=== PATIENT | female | born 1940 | race Caucasian/White ===

== ENCOUNTER 2017-09-30 08:09 | Emergency (ER) | payer MEDICARE, BC ==
[2017-09-30 09:19] LABS: AUTOMATED NEUTROPHIL # 6.2 TH/MM3 (1.8-7.7); BASOPHIL # 0.1 TH/MM3 (0-0.2); BASOPHIL % 0.7 % (0.0-2.0); EOSINOPHIL # 0.1 TH/MM3 (0-0.4); EOSINOPHIL % 0.8 % (0.0-4.0); HEMATOCRIT 45.2 % (35.0-46.0); HEMO FLAGS DIFF FINAL; HEMOGLOBIN 15.9 GM/DL (11.6-15.3); LYMPH % 15.8 % (9.0-44.0); LYMPHOCYTE # 1.4 TH/MM3 (1.0-4.8); MEAN CELL VOLUME 94.3 FL (80.0-100.0); MEAN CORPUSCULAR HEMOGLOBIN 33.3 PG (27.0-34.0); MEAN CORPUSCULAR HGB CONC 35.3 % (32.0-36.0); MEAN PLATELET VOLUME 8.8 FL (7.0-11.0); MONO % 9.7 % (0.0-8.0); MONOCYTE # 0.8 TH/MM3 (0-0.9); PLATELET COUNT 294 TH/MM3 (150-450); WHITE BLOOD COUNT 8.6 TH/MM3 (4.0-11.0)
[2017-09-30 09:55] LABS: CALCIUM 9.4 MG/DL (8.5-10.1)
[2017-09-30 09:56] LABS: GLUCOSE,RANDOM 109 MG/DL (74-106)
[2017-09-30 10:00] LABS: CREATININE 0.74 MG/DL (0.50-1.00); GLOMERULAR FILTRATION RATE 76 ML/MIN (>89)
[2017-09-30 10:02] LABS: ANION GAP 7 MEQ/L (5-15); CHLORIDE 107 MEQ/L (98-107); POTASSIUM 3.6 MEQ/L (3.5-5.1); SODIUM (NA) 141 MEQ/L (136-145)
[2017-09-30 10:04] LABS: BLOOD UREA NITROGEN 13 MG/DL (7-18)
[2017-09-30 10:39] LABS: WESTERGREN SEDIMENTATION RATE 4 mm/hr (0-30)
== END 2017-09-30 11:30 | disposition home or self-care (01) ==
LOC: PHED 08:09
DX: G44.309 Post-traumatic headache, unspecified, not intractable (principal); I10 Essential (primary) hypertension; Z79.899 Other long term (current) drug therapy
CPT/HCPCS: 70450; 80048; 85025; 85652; 99284

== ENCOUNTER 2018-03-28 14:57 | Observation (INO) ==
--- NOTE | 2018-03-28 15:14 | ED ---
HPI General Chief Complaint: Shortness of Breath/Dyspnea Stated Complaint: Cardiac Issue Time Seen by Provider: 03/28/18 15:01 Source: patient, EMS and RN notes reviewed Mode of arrival: EMS Limitations: no limitations History of Present Illness HPI narrative: 77 y/o female presents by ems with episode of heart rate in the 200s and feeling short of breath with chest pressure. She states she took her 's digoxin to see if it would help which is 0.25 mg. She states she had already taken her Cardizem which she has been on since she was in her 20s when she had an episode of tachycardia. She states she has not had any issues since then. She states now that her heart rate is controlled she has no symptoms. MD complaint: Reports rapid heart beat Onset (ago): minute(s) Duration: now resolved Context: Reports occurred during rest Associated symptoms: Reports chest pain and shortness of breath Related Data Home Medications Medication Instructions Recorded Confirmed clopidogrel [Plavix] 75 mg PO DAILY 03/28/18 03/28/18 conjugated estrogens [Premarin] 0.3 mg PO EVERY OTHER DAY 03/28/18 03/28/18 diltiazem HCl [Cardizem CD] 180 mg PO DAILY 03/28/18 03/28/18 lisinopril 10 mg PO DAILY 03/28/18 03/28/18 rosuvastatin [Crestor] 5 mg PO HS 03/28/18 03/28/18 Allergies Allergy/AdvReac Type Severity Reaction Status Date / Time No Known Allergies Allergy Unverified 09/30/17 08:19 Review of Systems ROS: all other systems reviewed are negative PMFSH History History Provided By: Patient (Tachycardia since she was 21) Medical History Medical History Accelerated essential hypertension (Acute) H/O: hysterectomy (Acute) Irregular heart beat (Acute) Tachycardia (Acute) Surgical History Surgical History History of appendectomy (Acute) Social History Social History Substance History: No History of Abuse Smoking Status: Former smoker Tobacco Type: Cigarettes How Often Do You Have a Drink Containing Alcohol: Monthly or less Recent Travel in [facility] within the Last 8 Weeks: No Exam Narrative Exam Narrative: GENERAL: 77 y/o female in no apparent distress SKIN: Focused skin assessment warm/dry. HEAD: Atraumatic. Normocephalic. EYES: Pupils equal and round. No scleral icterus. No injection or drainage. ENT: No nasal bleeding or discharge. Mucous membranes pink and moist. NECK: Trachea midline. No JVD. CARDIOVASCULAR: Regular rate and rhythm. No murmur appreciated. RESPIRATORY: No accessory muscle use. Clear to auscultation. Breath sounds equal bilaterally MUSCULOSKELETAL: No obvious deformities. No clubbing. No cyanosis. No edema. NEUROLOGICAL: Awake and alert. No obvious cranial nerve deficits. Motor grossly within normal limits. Normal speech. PSYCHIATRIC: Appropriate mood and affect; insight and judgment normal. Course Reevaluation(s) Reevaluation #1: Advised patient I recommend for her to stay in the hospital overnight. She states that she really wants to go home but does not want to sign out AMA. She is going to follow with Dr. Kang at our this Thursday for the first time. Will discuss with her sound engineer Reevaluation #2: Lengthy discussion with patient and originally she was not wanting to stay even for repeat troponin but now she is willing to stay for this repeat test and if it is normal agrees to discharge with follow-up in the office. She understands this is not a complete cardiac workup. Reevaluation #3: Repeat troponin is 0.08. Will discuss with sound engineer Additional Reevaluation(s): Patient updated and agrees to admission Consultations Consultation #1: dr hightower states can go home and follow in office if repeat troponin is normal as patient wanting to go home Consultation #2: dr hightower agrees to admit, states to give baby aspirin and therapeutic Lovenox and can stay at [facility] Consultation #3: dr sanchez agrees to admit Initial Documented Vital Signs Temperature 97.7 F 03/28/18 15:01 Pulse Rate 105 H 03/28/18 15:01 Respiratory Rate 18 03/28/18 15:01 Blood Pressure 167/71 H 03/28/18 15:01 Pulse Oximetry 95 03/28/18 15:01 Last Documented Vital Signs Temperature 97.7 F 03/28/18 15:01 Pulse Rate 92 H 03/28/18 18:15 Respiratory Rate 18 03/28/18 18:15 Blood Pressure 128/68 03/28/18 18:15 Pulse Oximetry 98 03/28/18 18:15 Medical Decision Making MDM Narrative Medical decision making narrative: will check labs, cxr and reevaluate Medical Screen Exam Complete: Yes Emergency Medical Condition: Yes Differential Diagnosis Differential Diagnosis: svt, afib with rvr, aflutter, electrolyte abnormality Lab Data Lab results reviewed: Yes I reviewed the patient's lab results. Result diagrams: 03/28/18 15:10 03/28/18 15:10 Lab Results 03/28/18 03/28/18 03/28/18 Range/Units 15:02 15:10 15:10 CBC w Diff Auto diff final WBC 7.0 (4.0-11.0) th/mm3 RBC 4.65 (4.00-5.30) mil/mm3 Hgb 15.4 H (11.6-15.3) gm/dL Hct 44.7 (35.0-46.0) % MCV 96.1 (80.0-100.0) fL MCH 33.1 (27.0-34.0) pg MCHC 34.4 (32.0-36.0) % RDW 11.5 L (11.6-17.2) % Plt Count 282 (150-450) th/mm3 MPV 8.7 (7.0-11.0) fL Neut % (Auto) 56.0 (16.0-70.0) % Lymph % (Auto) 27.0 (9.0-44.0) % [place] % (Auto) 14.0 H (0.0-8.0) % Eos % (Auto) 1.7 (0.0-4.0) % Baso % (Auto) 1.3 (0.0-2.0) % Neut # (Auto) 3.9 (1.8-7.7) th/mm3 Lymph # (Auto) 1.9 (1.0-4.8) th/mm3 [place] # (Auto) 1.0 H (0.0-0.9) th/mm3 Eos # (Auto) 0.1 (0.0-0.4) th/mm3 Baso # (Auto) 0.1 (0.0-0.2) th/mm3 WBC Differential . Differential Comment . PT (9.8-11.6) sec INR Ratio APTT (23.4-31.7) sec D-Dimer Quant (PE/DVT) 0.62 H (0.00-0.50) mg/L FEU Sodium (136-145) meq/L Potassium (3.5-5.1) meq/L Chloride (98-107) meq/L Carbon Dioxide (21.0-32.0) meq/L Anion Gap (5-15) meq/L BUN (7-18) mg/dL Creatinine (0.50-1.00) mg/dL Estimated GFR (>89) mL/min POC Glucose 114 H (68-110) mg/dl Random Glucose (74-106) mg/dL Calcium (8.5-10.1) mg/dL Magnesium (1.5-2.5) mg/dL Total Bilirubin (0.2-1.0) mg/dL AST (15-37) U/L ALT (10-53) U/L Alkaline Phosphatase (45-117) U/L Total Creatine Kinase (26-192) U/L Troponin I (0.02-0.05) ng/mL B-Natriuretic Peptide (0-100) pg/mL Total Protein (6.4-8.2) g/dL Albumin (3.4-5.0) g/dL Digoxin (0.8-2.0) ng/mL 03/28/18 03/28/18 03/28/18 Range/Units 15:10 15:10 15:10 CBC w Diff WBC (4.0-11.0) th/mm3 RBC (4.00-5.30) mil/mm3 Hgb (11.6-15.3) gm/dL Hct (35.0-46.0) % MCV (80.0-100.0) fL MCH (27.0-34.0) pg MCHC (32.0-36.0) % RDW (11.6-17.2) % Plt Count (150-450) th/mm3 MPV (7.0-11.0) fL Neut % (Auto) (16.0-70.0) % Lymph % (Auto) (9.0-44.0) % [place] % (Auto) (0.0-8.0) % Eos % (Auto) (0.0-4.0) % Baso % (Auto) (0.0-2.0) % Neut # (Auto) (1.8-7.7) th/mm3 Lymph # (Auto) (1.0-4.8) th/mm3 [place] # (Auto) (0.0-0.9) th/mm3 Eos # (Auto) (0.0-0.4) th/mm3 Baso # (Auto) (0.0-0.2) th/mm3 WBC Differential Differential Comment PT 9.4 L (9.8-11.6) sec INR 0.9 Ratio APTT 31.0 (23.4-31.7) sec D-Dimer Quant (PE/DVT) (0.00-0.50) mg/L FEU Sodium 138 (136-145) meq/L Potassium 4.7 (3.5-5.1) meq/L Chloride 107 (98-107) meq/L Carbon Dioxide 21.6 (21.0-32.0) meq/L Anion Gap 9 (5-15) meq/L BUN 13 (7-18) mg/dL Creatinine 0.79 (0.50-1.00) mg/dL Estimated GFR 71 L (>89) mL/min POC Glucose (68-110) mg/dl Random Glucose 115 H (74-106) mg/dL Calcium 9.1 (8.5-10.1) mg/dL Magnesium (1.5-2.5) mg/dL Total Bilirubin 0.5 (0.2-1.0) mg/dL AST 70 H (15-37) U/L ALT 68 H (10-53) U/L Alkaline Phosphatase 65 (45-117) U/L Total Creatine Kinase (26-192) U/L Troponin I Less than 0.02 L (0.02-0.05) ng/mL B-Natriuretic Peptide 53 (0-100) pg/mL Total Protein 7.6 (6.4-8.2) g/dL Albumin 3.9 (3.4-5.0) g/dL Digoxin 0.8 (0.8-2.0) ng/mL 03/28/18 03/28/18 Range/Units 15:10 18:00 CBC w Diff WBC (4.0-11.0) th/mm3 RBC (4.00-5.30) mil/mm3 Hgb (11.6-15.3) gm/dL Hct (35.0-46.0) % MCV (80.0-100.0) fL MCH (27.0-34.0) pg MCHC (32.0-36.0) % RDW (11.6-17.2) % Plt Count (150-450) th/mm3 MPV (7.0-11.0) fL Neut % (Auto) (16.0-70.0) % Lymph % (Auto) (9.0-44.0) % [place] % (Auto) (0.0-8.0) % Eos % (Auto) (0.0-4.0) % Baso % (Auto) (0.0-2.0) % Neut # (Auto) (1.8-7.7) th/mm3 Lymph # (Auto) (1.0-4.8) th/mm3 [place] # (Auto) (0.0-0.9) th/mm3 Eos # (Auto) (0.0-0.4) th/mm3 Baso # (Auto) (0.0-0.2) th/mm3 WBC Differential Differential Comment PT (9.8-11.6) sec INR Ratio APTT (23.4-31.7) sec D-Dimer Quant (PE/DVT) (0.00-0.50) mg/L FEU Sodium (136-145) meq/L Potassium (3.5-5.1) meq/L Chloride (98-107) meq/L Carbon Dioxide (21.0-32.0) meq/L Anion Gap (5-15) meq/L BUN (7-18) mg/dL Creatinine (0.50-1.00) mg/dL Estimated GFR (>89) mL/min POC Glucose (68-110) mg/dl Random Glucose (74-106) mg/dL Calcium (8.5-10.1) mg/dL Magnesium 2.3 (1.5-2.5) mg/dL Total Bilirubin (0.2-1.0) mg/dL AST (15-37) U/L ALT (10-53) U/L Alkaline Phosphatase (45-117) U/L Total Creatine Kinase 95 (26-192) U/L Troponin I 0.08 H (0.02-0.05) ng/mL B-Natriuretic Peptide (0-100) pg/mL Total Protein (6.4-8.2) g/dL Albumin (3.4-5.0) g/dL Digoxin (0.8-2.0) ng/mL Imaging Data Attestation: I personally reviewed and interpreted this imaging study as follows : Radiologist's impression: Chest X-Ray 03/28/18 15:06 CONCLUSION: No evidence of acute cardiac pulmonary process. Chest CTA 03/28/18 15:50 CONCLUSION: 1. No pulmonary embolus or other acute cardiopulmonary disease. 2. Mild to moderate emphysema. 3. Coronary artery calcification. Discharge Plan Discharge Disposition Patient Disposition: 30 Still Patient Discharge Details Diagnosis: Tachycardia, Shortness of breath Physicians Team ED Provider: Bethany Cutler Primary Care Provider: Leroy Padilla Attending Provider: Mega Sanchez Status ED Status: Admitted Observation Patient
[2018-03-28 15:26] LABS: Baso # (Auto) 0.1 th/mm3 (0.0-0.2); Baso % (Auto) 1.3 % (0.0-2.0); Eos # (Auto) 0.1 th/mm3 (0.0-0.4); Eos % (Auto) 1.7 % (0.0-4.0); Hematocrit 44.7 % (35.0-46.0); Hemoglobin 15.4 gm/dL (11.6-15.3); Lymph # (Auto) 1.9 th/mm3 (1.0-4.8); Mean Corpuscular HGB Conc 34.4 % (32.0-36.0); Mean Corpuscular Hemoglobin 33.1 pg (27.0-34.0); Mean Corpuscular Volume 96.1 fL (80.0-100.0); Mean Platelet Volume 8.7 fL (7.0-11.0); Neut # (Auto) 3.9 th/mm3 (1.8-7.7); Platelet Count 282 th/mm3 (150-450); Red Blood Count 4.65 mil/mm3 (4.00-5.30); Red Cell Distribution Width 11.5 % (11.6-17.2)
[2018-03-28 15:37] LABS: Chloride 107 meq/L (98-107); Sodium 138 meq/L (136-145)
[2018-03-28 15:39] LABS: Magnesium 2.3 mg/dL (1.5-2.5)
[2018-03-28 15:40] LABS: Calcium 9.1 mg/dL (8.5-10.1)
[2018-03-28 15:41] LABS: Albumin 3.9 g/dL (3.4-5.0); Anion Gap 9 meq/L (5-15); Blood Urea Nitrogen 13 mg/dL (7-18); Carbon Dioxide 21.6 meq/L (21.0-32.0); Glucose,Random 115 mg/dL (74-106)
[2018-03-28 15:42] LABS: Potassium 4.7 meq/L (3.5-5.1)
[2018-03-28 15:44] LABS: Alanine Aminotransferase 68 U/L (10-53); Aspartate Aminotransferase 70 U/L (15-37); Glomerular Filtration Rate 71 mL/min (>89); INR 0.9 Ratio; Prothrombin Time 9.4 sec (9.8-11.6)
[2018-03-28 15:46] LABS: Alkaline Phosphatase 65 U/L (45-117); Total Protein 7.6 g/dL (6.4-8.2)
--- NOTE | 2018-03-28 15:49 | XR ---
EXAM DATE: 03/28/2018 3:44 PM EST AGE/SEX: 77 years / Female INDICATIONS: Rapid heart rate, short of breath CLINICAL DATA: This is the patient's initial encounter. Patient reports that signs and symptoms have been present for 1 day and indicates a pain score of 0/10. MEDICAL/SURGICAL HISTORY: None. None. COMPARISON: No prior exams available for comparison. FINDINGS: A single AP view of the chest demonstrates the lungs to be symmetrically aerated without evidence of mass, infiltrate or effusion. The cardiomediastinal contours are unremarkable. Osseous structures a re intact. CONCLUSION: No evidence of acute cardiac pulmonary process. Electronically signed by: Wilton Baum MD 03/28/2018 3:47 PM EST
[2018-03-28 16:22] LABS: Digoxin 0.8 ng/mL (0.8-2.0)
--- NOTE | 2018-03-28 17:08 | CT ---
EXAM DATE: 03/28/2018 4:57 PM EST AGE/SEX: 77 years / Female INDICATIONS: Chest pressure and tachycardia. CLINICAL DATA: This is the patient's initial encounter. Patient reports that signs and symptoms have been present for 1 day and indicates a pain score of 0/10. MEDICAL/SURGICAL HISTORY: None. None. RADIATION DOSE: 8.42 CTDI (mGy) COMPARISON: [facility], CHEST 1V SINGLE AP, 03/28/2018. . TECHNIQUE: Volumetric scanning was performed using a multi-row detector CT scanner during bolus infu joselyn of 65 ml Omnipaque 350 (iohexol) nonionic water-soluble contrast as a single exam dose. The cisco a was post processed with a variety of visualization algorithms including full volume maximum intensi ty projection and sliding thin slab reformation. Using automated exposure control and adjustment of the mA and/or kV according to patient size, radiation dose was kept as low as reasonably achievable t o obtain optimal diagnostic quality images. DICOM format image data is available electronically for review and comparison. FINDINGS: There is no pulmonary embolus. Heart size within normal limits. There is coronary artery calcificatio n. Thoracic aorta is tortuous and atherosclerotic. No aneurysm. Mild to moderate emphysema. No pneumonia. No pleural effusion or pneumothorax. There is no pathologic-appearing mediastinal, hilar or axillary lymphadenopathy. 1.5 cm hepatic cyst. CONCLUSION: 1. No pulmonary embolus or other acute cardiopulmonary disease. 2. Mild to moderate emphysema. 3. Coronary artery calcification. Electronically signed by: Linwood Kapadia MD 03/28/2018 5:06 PM EST
[2018-03-28] MEDS ORDERED: Enoxaparin Inj 60 MG/0.6 ML Syringe SQ ONE (18:39)
[2018-03-28] MEDS ORDERED: Acetaminophen 325 MG Tablet PO PRN (21:00)
[2018-03-28] MEDS ORDERED: Senna/Docusate Sodium 8.6/50 MG Tablet PO SCH (21:00)
[2018-03-28] MEDS ORDERED: Sodium Chloride 0.45 % Inj 1,000 ML IV.CONT SCH (21:00)
[2018-03-28] MEDS ORDERED: Bisacodyl 10 MG Supp RECTAL PRN (21:00)
[2018-03-28] MEDS ORDERED: Melatonin 5 MG Tablet PO PRN (23:16)
[2018-03-28 23:23] LABS: Troponin I 0.1 ng/mL (0.02-0.05)
[2018-03-28 23:32] LABS: Amphetamine Screen,Urine Neg (Neg); Barbiturate Screen,Urine Neg (Neg)
[2018-03-28 23:33] LABS: Cannabinoid Screen,Urine Neg (Neg); Cocaine Screen,Urine Neg (Neg)
[2018-03-28 23:53] LABS: Opiate Screen,Urine Neg (Neg)
[2018-03-29 04:58] LABS: Alanine Aminotransferase 47 U/L (10-53); Albumin 3.4 g/dL (3.4-5.0); Alkaline Phosphatase 52 U/L (45-117); Anion Gap 8 meq/L (5-15); Aspartate Aminotransferase 30 U/L (15-37); Blood Urea Nitrogen 11 mg/dL (7-18); Calcium 8.1 mg/dL (8.5-10.1); Carbon Dioxide 24.8 meq/L (21.0-32.0); Chloride 105 meq/L (98-107); Glomerular Filtration Rate 79 mL/min (>89); Glucose,Random 85 mg/dL (74-106); Potassium 3.6 meq/L (3.5-5.1); Sodium 138 meq/L (136-145); Total Protein 6.2 g/dL (6.4-8.2)
[2018-03-29] MEDS ORDERED: Enoxaparin Inj 60 MG/0.6 ML Syringe SQ SCH (08:00)
[2018-03-29 08:04] VITALS: O2SAT 98
[2018-03-29 08:06] VITALS: TEMP 98.5
[2018-03-29] MEDS ORDERED: Lisinopril 10 MG Tablet PO SCH (09:00)
[2018-03-29] MEDS ORDERED: dilTIAZem CD 180 MG Capsule PO SCH (09:00)
--- NOTE | 2018-03-29 09:05 | P.CONCA ---
History of Present Illness Service: Cardiology Reason for Consult: Palpitations Primary Care Provider: Leroy Padilla MD Chief Complaint: Palpitations History of Present Illness: Pleasant 77-year-old female who was scheduled for a new patient appointment in our office on March 31 who reports that she was sitting watching TV yesterday when all of a sudden her heart rate jumped up into the 200s associated with shortness of breath. Patient states that she took her 's digoxin to see if it would help slow her heart rate down. Upon arrival to the hospital her heart rate had returned to normal and her symptoms had resolved. She is on Cardizem daily which she has been on since she was 30 years old for an episode of tachycardia. She had elevated d-dimer followed by CTA that ruled out PE. Troponin mildly elevated at 0.10. Patient denies any chest pain or shortness of breath at this time. Reports she walks regularly for exercise, with no difficulty. Patient had a recent MR brain with and without contrast, that showed scattered old tiny lacunar infarcts within the bilateral basal ganglia and the left cerebellar hemisphere. Records reviewed from patient's prior manager policy report a remote history of atrial fibrillation. Long discussion had with patient and her in reference to anticoagulation with Eliquis or Coumadin. We will plan to start the patient on metoprolol and Eliquis 5 mg twice daily. Patient request to be discharged with follow-up testing outpatient. Review of Systems All other systems reviewed negative except as stated in [facility] - History History Provided By: Patient - Medical History Medical History: Medical History (Last Reviewed 03/29/18 @ 10:25 by Mega Sanchez MD) Accelerated essential hypertension H/O: hysterectomy Irregular heart beat Tachycardia - Surgical History Surgical History: Surgical History (Last Reviewed 03/29/18 @ 10:25 by Mega Sanchez MD) History of appendectomy - Social History I have reviewed the patient's Social History: Yes - Tobacco History Second Hand Smoke Exposure: No Tobacco Use In Past 30 Days: No Smoking Status: Former smoker Tobacco Type: Cigarettes - Alcohol History How Often Do You Have a Drink Containing Alcohol: Monthly or less - Substance Use History Substance History: No History of Abuse - Travel History Recent Travel in the [facility] Within the Last 8 Weeks: No - Immunization History Tetanus Immunization: Unsure Medications and Allergies Allergies Allergy/AdvReac Type Severity Reaction Status Date / Time No Known Allergies Allergy Unverified 09/30/17 08:19 Home Medications Medication Instructions Recorded Confirmed Type clopidogrel [Plavix] 75 mg PO DAILY 03/28/18 03/28/18 History conjugated estrogens [Premarin] 0.3 mg PO EVERY OTHER DAY 03/28/18 03/28/18 History diltiazem HCl [Cardizem CD] 180 mg PO DAILY 03/28/18 03/28/18 History lisinopril 10 mg PO DAILY 03/28/18 03/28/18 History rosuvastatin [Crestor] 5 mg PO HS 03/28/18 03/28/18 History Active Medications: Active Medications Acetaminophen (Tylenol) 650 mg PO Q4H PRN PRN Reason: Temp > 100.4 Aspirin (Ecotrin) 81 mg PO DAILY [facility] Bisacodyl (Dulcolax Supp) 10 mg RECTAL DAILY PRN PRN Reason: SEVERE CONSITIPATION Diltiazem HCl (Cardizem Cd 24hr) 180 mg PO DAILY [facility] Enoxaparin Sodium (Lovenox Inj) 60 mg SQ Q12HR [facility] Sodium Chloride (1/2 Normal Saline Inj) 1,000 mls @ 65 mls/hr IV.CONT .[id number] [facility] Stop: 03/29/18 12:23 Last Admin: 03/28/18 22:40 Dose: 65 mls/hr Lactulose (Lactulose Liq) 30 ml PO DAILY PRN PRN Reason: SEVERE CONSITIPATION Lisinopril (Prinivil) 10 mg PO DAILY [facility] Melatonin (Melatonin) 10 mg PO HS PRN PRN Reason: INSOMNIA Last Admin: 03/28/18 23:25 Dose: 10 mg Ondansetron HCl (Zofran Inj) 4 mg IV.PUSH Q6H PRN PRN Reason: NAUSEA OR VOMITING Senna/Docusate Sodium (Blanche-Colace) 1 tab PO BID [facility] Last Admin: 03/28/18 22:33 Dose: Not Given Sennosides (Senokot) 17.2 mg PO Q12H PRN PRN Reason: Moderate Constipation Sodium Chloride (Ns Flush) 2 ml IV.FLUSH BID [facility] Last Admin: 03/28/18 22:41 Dose: 2 ml Sodium Chloride (Ns Flush) 2 ml IV.FLUSH PRN PRN PRN Reason: FLUSH AFTER USING IV ACCESS Exam Vital signs: Vital Signs 03/28/18 15:01 03/28/18 15:06 03/28/18 16:00 Temperature 97.7 F Pulse Rate 105 H 108 H 110 H Respiratory Rate 18 16 Blood Pressure 167/71 H 144/70 H Pulse Oximetry 95 95 03/28/18 16:38 03/28/18 17:01 03/28/18 17:18 Temperature Pulse Rate 102 H 110 H Respiratory Rate 18 18 Blood Pressure 145/64 H 136/67 Pulse Oximetry 96 95 95 03/28/18 18:15 03/28/18 19:28 03/28/18 20:21 Temperature Pulse Rate 92 H 92 H 74 Respiratory Rate 18 18 Blood Pressure 128/68 136/74 134/77 Pulse Oximetry 98 95 97 03/28/18 21:55 03/28/18 22:28 03/28/18 22:56 Temperature 97.7 F 97.7 F Pulse Rate 80 80 Respiratory Rate 24 16 Blood Pressure 141/68 H 141/68 H Pulse Oximetry 95 95 95 03/29/18 00:00 03/29/18 02:45 03/29/18 04:00 Temperature 97.5 F L 97.8 F Pulse Rate 80 76 62 Respiratory Rate 19 20 15 Blood Pressure 133/54 L 140/57 L Pulse Oximetry 92 L 03/29/18 07:00 03/29/18 08:00 Temperature 98.5 F Pulse Rate 72 70 Respiratory Rate 18 20 Blood Pressure Pulse Oximetry 98 Intake & Output 03/28/18 03/29/18 03/29/18 18:59 06:59 18:59 Intake Total 200 / 200 Output Total 175 / 175 300 / 300 Balance 25 / 25 -300 / -300 Weight 64 kg 63 kg Intake: Oral 200 / 200 Output: Urine 175 / 175 300 / 300 Other: # Voids 1 2 Weight On Admission 63 kg - Constitutional no acute distress, thin - Routine HEENT Exam Head: Present: normocephalic Eye: Present: EOMI, PERRL, normal accommodation ENT: Present: mucous membranes moist - Routine Neck Exam Present: supple - Routine Respiratory Exam Present: CTA bilaterally - Routine Cardiovascular Exam Present: RRR, tachycardia - Routine Skin Exam Present: intact - Routine Neurological Exam Present: alert, oriented X3 Results 03/28/18 15:10 03/29/18 04:25 Cardiac Enzymes 03/28/18 03/28/18 03/28/18 Range/Units 15:10 15:10 18:00 AST 70 H (15-37) U/L Troponin I Less than 0.02 L 0.08 H (0.02-0.05) ng/mL B-Natriuretic Peptide 53 (0-100) pg/mL 03/28/18 03/29/18 Range/Units 22:44 04:25 AST 30 (15-37) U/L Troponin I 0.10 H (0.02-0.05) ng/mL B-Natriuretic Peptide (0-100) pg/mL Coagulation 03/28/18 03/28/18 Range/Units 15:10 15:10 PT 9.4 L (9.8-11.6) sec APTT 31.0 (23.4-31.7) sec B-Natriuretic Peptide 53 (0-100) pg/mL CBC 03/28/18 Range/Units 15:10 WBC 7.0 (4.0-11.0) th/mm3 RBC 4.65 (4.00-5.30) mil/mm3 Hgb 15.4 H (11.6-15.3) gm/dL Hct 44.7 (35.0-46.0) % Plt Count 282 (150-450) th/mm3 Neut # (Auto) 3.9 (1.8-7.7) th/mm3 Lymph # (Auto) 1.9 (1.0-4.8) th/mm3 [place] # (Auto) 1.0 H (0.0-0.9) th/mm3 Eos # (Auto) 0.1 (0.0-0.4) th/mm3 Baso # (Auto) 0.1 (0.0-0.2) th/mm3 Comprehensive Metabolic Panel 03/28/18 03/29/18 Range/Units 15:10 04:25 Sodium 138 138 (136-145) meq/L Potassium 4.7 3.6 D (3.5-5.1) meq/L Chloride 107 105 (98-107) meq/L Carbon Dioxide 21.6 24.8 (21.0-32.0) meq/L BUN 13 11 (7-18) mg/dL Creatinine 0.79 0.72 (0.50-1.00) mg/dL Calcium 9.1 8.1 L D (8.5-10.1) mg/dL AST 70 H 30 (15-37) U/L ALT 68 H 47 (10-53) U/L Alkaline Phosphatase 65 52 (45-117) U/L Total Protein 7.6 6.2 L D (6.4-8.2) g/dL Albumin 3.9 3.4 (3.4-5.0) g/dL Intake and Output 03/28/18 03/29/18 03/29/18 22:59 06:59 14:59 Intake Total 200 / 200 Output Total 175 / 175 300 / 300 Balance 25 / 25 -300 / -300 Intake: Oral 200 / 200 Output: Urine 175 / 175 300 / 300 Other: # Voids 1 2 Weight 63 kg 63 kg Weight On Admission 63 kg - Imaging and Cardiology Imaging: Impressions Chest X-Ray 03/28/18 15:06 CONCLUSION: No evidence of acute cardiac pulmonary process. Chest CTA 03/28/18 15:50 CONCLUSION: 1. No pulmonary embolus or other acute cardiopulmonary disease. 2. Mild to moderate emphysema. 3. Coronary artery calcification. Assessment and Plan - Plan Assessment Palpitations Remote hx of Afib Plan -Troponin 0.10, CTA shows coronary artery calcifications, pt denies chest pain. SOB resolved as soon as HR returned to baseline. Elevated d-dimer, CTA ruled out PE, does show coronary artery calcification. Telemetry currently reveals sinus rhythm heart rate 90-100, old records indicate a prior history of remote atrial fibrillation, recent MR brain done on January 20, 2018 shows scattered old tiny lacunar infarcts. Patient request to be discharged home with follow- up testing outpatient. She has appointment in our office on March 31 we will plan to check an echocardiogram and schedule stress test at that time. Will plan to discontinue Plavix and start patient on Eliquis 5 mg p.o. twice daily we will also send home on metoprolol 12.5mg BID. OK to continue cardizem and lisinopril -Continues on statin and ASA. The patient was seen and evaluated by Dr. Espinosa who participated in care management and decision making. The exam, history, and the medical decision-making described in the above note were completed with the assistance of the mid-level provider. I reviewed and agree with the findings presented. Afib history and strokes start anticoagulants Overall stable doing better will fu as op Code Status: Full Code Discussed Condition With: RN and
[2018-03-29] MEDS ORDERED: HYALURONIDASE LEFT EYE ONE (09:16)
[2018-03-29] MEDS ORDERED: BUPIVACAINE LEFT EYE ONE (09:16)
[2018-03-29] MEDS ORDERED: LIDOCAINE LEFT EYE ONE (09:16)
[2018-03-29] MEDS ORDERED: Cyclopentolate 1% Opth Drops 2 ML Bottle LEFT EYE SCH (09:30)
--- NOTE | 2018-03-29 09:48 | P.HP ---
History of Present Illness Primary Care Physician: Leroy Padilla MD Chief Complaint: Palpitations History of Present Illness: This is a 77-year-old female with a history of hypertension, hyperlipidemia and irregular heartbeat/tachycardia on calcium channel esperanza. Patient was watching TV yesterday when she developed palpitations, dizziness and shortness of breath. 911 was called and EMS mentioned that her heart rate was over 200. She denies chest pain, pressure, fever, chills, nausea, numbness and focal weakness. In the emergency department her troponin was elevated 0.08 and cardiology recommended hospitalization and start patient on Lovenox suspecting A. fib. Overnight she did well. EKG tracing independently reviewed by me with sinus tachycardia and right bundle branch block. Telemetry shows sinus rhythm. Discussed with cardiology REMITTANCE CLERK, outside records showed that she has history of A. fib and bilateral CVA (was started on Plavix by neurology). Recommended patient to be started on metoprolol and Eliquis and discontinue Plavix. Patient does not want to undergo ischemic workup in light of elevated troponin and coronary calcification on the CTA (negative for PE but has findings consistent with emphysema). She wants to go home and patient will undergo echocardiogram and Lexiscan and Dr. Espinosa's clinic this coming Thursday Review of Systems All other systems reviewed negative except as stated in HPI [facility] - History History Provided By: Patient - Medical History Medical History: Medical History (Last Reviewed 03/29/18 @ 10:25 by Mega Sanchez MD) Accelerated essential hypertension H/O: hysterectomy Irregular heart beat Tachycardia - Surgical History Surgical History: Surgical History (Last Reviewed 03/29/18 @ 10:25 by Mega Sanchez MD) History of appendectomy - Family History Family History: Family History (Last Updated 03/29/18 @ 10:25 by Mega Sanchez MD) Other Family history of acute myocardial infarction Family history of colon cancer - Social History I have reviewed the patient's Social History: Yes - Tobacco History Second Hand Smoke Exposure: No Tobacco Use In Past 30 Days: No Smoking Status: Former smoker Tobacco Type: Cigarettes - Alcohol History How Often Do You Have a Drink Containing Alcohol: Monthly or less - Substance Use History Substance History: No History of Abuse - Travel History Recent Travel in the [facility] Within the Last 8 Weeks: No - Immunization History Tetanus Immunization: Unsure Medications and Allergies Active Medications: Active Medications Acetaminophen (Tylenol) 650 mg PO Q4H PRN PRN Reason: Temp > 100.4 Apixaban (Eliquis) 5 mg PO BID [facility] Last Admin: 03/29/18 09:29 Dose: 5 mg Bisacodyl (Dulcolax Supp) 10 mg RECTAL DAILY PRN PRN Reason: SEVERE CONSITIPATION Diltiazem HCl (Cardizem Cd 24hr) 180 mg PO DAILY [facility] Last Admin: 03/29/18 09:28 Dose: 180 mg Sodium Chloride (1/2 Normal Saline Inj) 1,000 mls @ 65 mls/hr IV.CONT .[id number] [facility] Stop: 03/29/18 12:23 Last Admin: 03/28/18 22:40 Dose: 65 mls/hr Lactulose (Lactulose Liq) 30 ml PO DAILY PRN PRN Reason: SEVERE CONSITIPATION Lisinopril (Prinivil) 10 mg PO DAILY [facility] Last Admin: 03/29/18 09:28 Dose: 10 mg Melatonin (Melatonin) 10 mg PO HS PRN PRN Reason: INSOMNIA Last Admin: 03/28/18 23:25 Dose: 10 mg Metoprolol Tartrate (Lopressor) 12.5 mg PO BID [facility] Last Admin: 03/29/18 09:29 Dose: 12.5 mg Ondansetron HCl (Zofran Inj) 4 mg IV.PUSH Q6H PRN PRN Reason: NAUSEA OR VOMITING Senna/Docusate Sodium (Blanche-Colace) 1 tab PO BID [facility] Last Admin: 03/28/18 22:33 Dose: Not Given Sennosides (Senokot) 17.2 mg PO Q12H PRN PRN Reason: Moderate Constipation Sodium Chloride (Ns Flush) 2 ml IV.FLUSH BID [facility] Last Admin: 03/28/18 22:41 Dose: 2 ml Sodium Chloride (Ns Flush) 2 ml IV.FLUSH PRN PRN PRN Reason: FLUSH AFTER USING IV ACCESS Allergies Allergy/AdvReac Type Severity Reaction Status Date / Time No Known Allergies Allergy Unverified 09/30/17 08:19 Home Medications Medication Instructions Recorded Confirmed Type clopidogrel [Plavix] 75 mg PO DAILY 03/28/18 03/28/18 History conjugated estrogens [Premarin] 0.3 mg PO EVERY OTHER DAY 03/28/18 03/28/18 History diltiazem HCl [Cardizem CD] 180 mg PO DAILY 03/28/18 03/28/18 History lisinopril 10 mg PO DAILY 03/28/18 03/28/18 History rosuvastatin [Crestor] 5 mg PO HS 03/28/18 03/28/18 History Exam Vital signs: Vital Signs 03/28/18 15:01 03/28/18 15:06 03/28/18 16:00 Temperature 97.7 F Pulse Rate 105 H 108 H 110 H Respiratory Rate 18 16 Blood Pressure 167/71 H 144/70 H Pulse Oximetry 95 95 03/28/18 16:38 03/28/18 17:01 03/28/18 17:18 Temperature Pulse Rate 102 H 110 H Respiratory Rate 18 18 Blood Pressure 145/64 H 136/67 Pulse Oximetry 96 95 95 03/28/18 18:15 03/28/18 19:28 03/28/18 20:21 Temperature Pulse Rate 92 H 92 H 74 Respiratory Rate 18 18 Blood Pressure 128/68 136/74 134/77 Pulse Oximetry 98 95 97 03/28/18 21:55 03/28/18 22:28 03/28/18 22:56 Temperature 97.7 F 97.7 F Pulse Rate 80 80 Respiratory Rate 24 16 Blood Pressure 141/68 H 141/68 H Pulse Oximetry 95 95 95 03/29/18 00:00 03/29/18 02:45 03/29/18 04:00 Temperature 97.5 F L 97.8 F Pulse Rate 80 76 62 Respiratory Rate 19 20 15 Blood Pressure 133/54 L 140/57 L Pulse Oximetry 92 L 03/29/18 07:00 03/29/18 08:00 Temperature 98.5 F Pulse Rate 72 70 Respiratory Rate 18 20 Blood Pressure Pulse Oximetry 98 Intake & Output 03/28/18 03/29/18 03/29/18 18:59 06:59 18:59 Intake Total 200 / 200 Output Total 175 / 175 300 / 300 Balance 25 / 25 -300 / -300 Weight 64 kg 63 kg Intake: Oral 200 / 200 Output: Urine 175 / 175 300 / 300 Other: # Voids 1 2 Weight On Admission 63 kg Narrative: GENERAL: Well-developed, well-nourished in no distress SKIN: Warm and dry. HEAD: Atraumatic. Normocephalic. EYES: Pupils equal and round. No scleral icterus. No injection or drainage. ENT: No nasal bleeding or discharge. Mucous membranes pink and moist. NECK: Trachea midline. No JVD. No thyromegaly CARDIOVASCULAR: Regular rate and rhythm. RESPIRATORY: No accessory muscle use. Clear to auscultation. Breath sounds equal bilaterally. GASTROINTESTINAL: Abdomen soft, non-tender, nondistended. MUSCULOSKELETAL: Extremities without clubbing, cyanosis, or edema. No obvious deformities. NEUROLOGICAL: Awake and alert. No obvious cranial nerve deficits. Motor grossly within normal limits. Five out of 5 muscle strength in the arms and legs. Normal speech. PSYCHIATRIC: Appropriate mood and affect; insight and judgment normal. Results - Labs CBC & Chem 7: 03/28/18 15:10 03/29/18 04:25 Labs: Laboratory Results - last 24 hr 03/28/18 03/28/18 03/28/18 15:02 15:10 15:10 CBC w Diff Auto diff final WBC 7.0 RBC 4.65 Hgb 15.4 H Hct 44.7 MCV 96.1 MCH 33.1 MCHC 34.4 RDW 11.5 L Plt Count 282 MPV 8.7 Neut % (Auto) 56.0 Lymph % (Auto) 27.0 [place] % (Auto) 14.0 H Eos % (Auto) 1.7 Baso % (Auto) 1.3 Neut # (Auto) 3.9 Lymph # (Auto) 1.9 [place] # (Auto) 1.0 H Eos # (Auto) 0.1 Baso # (Auto) 0.1 WBC Differential . Differential Comment . PT INR APTT D-Dimer Quant (PE/DVT) 0.62 H Sodium Potassium Chloride Carbon Dioxide Anion Gap BUN Creatinine Estimated GFR POC Glucose 114 H Random Glucose Calcium Magnesium Total Bilirubin AST ALT Alkaline Phosphatase Total Creatine Kinase Troponin I B-Natriuretic Peptide Total Protein Albumin TSH Digoxin Urine Opiates Screen Ur Barbiturates Screen Ur Amphetamines Screen U Benzodiazepines Scrn Urine Cocaine Screen U Cannabinoids Screen 03/28/18 03/28/18 03/28/18 15:10 15:10 15:10 CBC w Diff WBC RBC Hgb Hct MCV MCH MCHC RDW Plt Count MPV Neut % (Auto) Lymph % (Auto) [place] % (Auto) Eos % (Auto) Baso % (Auto) Neut # (Auto) Lymph # (Auto) [place] # (Auto) Eos # (Auto) Baso # (Auto) WBC Differential Differential Comment PT 9.4 L INR 0.9 APTT 31.0 D-Dimer Quant (PE/DVT) Sodium 138 Potassium 4.7 Chloride 107 Carbon Dioxide 21.6 Anion Gap 9 BUN 13 Creatinine 0.79 Estimated GFR 71 L POC Glucose Random Glucose 115 H Calcium 9.1 Magnesium Total Bilirubin 0.5 AST 70 H ALT 68 H Alkaline Phosphatase 65 Total Creatine Kinase Troponin I Less than 0.02 L B-Natriuretic Peptide 53 Total Protein 7.6 Albumin 3.9 TSH Digoxin 0.8 Urine Opiates Screen Ur Barbiturates Screen Ur Amphetamines Screen U Benzodiazepines Scrn Urine Cocaine Screen U Cannabinoids Screen 03/28/18 03/28/18 03/28/18 15:10 18:00 18:00 CBC w Diff WBC RBC Hgb Hct MCV MCH MCHC RDW Plt Count MPV Neut % (Auto) Lymph % (Auto) [place] % (Auto) Eos % (Auto) Baso % (Auto) Neut # (Auto) Lymph # (Auto) [place] # (Auto) Eos # (Auto) Baso # (Auto) WBC Differential Differential Comment PT INR APTT D-Dimer Quant (PE/DVT) Sodium Potassium Chloride Carbon Dioxide Anion Gap BUN Creatinine Estimated GFR POC Glucose Random Glucose Calcium Magnesium 2.3 Total Bilirubin AST ALT Alkaline Phosphatase Total Creatine Kinase 95 Troponin I 0.08 H B-Natriuretic Peptide Total Protein Albumin TSH 0.634 Digoxin Urine Opiates Screen Ur Barbiturates Screen Ur Amphetamines Screen U Benzodiazepines Scrn Urine Cocaine Screen U Cannabinoids Screen 03/28/18 03/28/18 03/29/18 22:44 22:52 04:25 CBC w Diff WBC RBC Hgb Hct MCV MCH MCHC RDW Plt Count MPV Neut % (Auto) Lymph % (Auto) [place] % (Auto) Eos % (Auto) Baso % (Auto) Neut # (Auto) Lymph # (Auto) [place] # (Auto) Eos # (Auto) Baso # (Auto) WBC Differential Differential Comment PT INR APTT D-Dimer Quant (PE/DVT) Sodium 138 Potassium 3.6 D Chloride 105 Carbon Dioxide 24.8 Anion Gap 8 BUN 11 Creatinine 0.72 Estimated GFR 79 L POC Glucose Random Glucose 85 Calcium 8.1 L D Magnesium Total Bilirubin 0.4 AST 30 ALT 47 Alkaline Phosphatase 52 Total Creatine Kinase 54 Troponin I 0.10 H B-Natriuretic Peptide Total Protein 6.2 L D Albumin 3.4 TSH Digoxin Urine Opiates Screen Neg Ur Barbiturates Screen Neg Ur Amphetamines Screen Neg U Benzodiazepines Scrn Neg Urine Cocaine Screen Neg U Cannabinoids Screen Neg - Imaging Impressions Chest X-Ray 03/28/18 15:06 CONCLUSION: No evidence of acute cardiac pulmonary process. Chest CTA 03/28/18 15:50 CONCLUSION: 1. No pulmonary embolus or other acute cardiopulmonary disease. 2. Mild to moderate emphysema. 3. Coronary artery calcification. Caprini VTE Risk Assessment Caprini VTE Risk Assessment: Moderate/High Risk (score >= 2) Caprini Risk Assessment Model: Point Value = 1 Point Value = 2 Point Value = 3 Point Value = 5 Age 41-60 Minor surgery BMI > 25 kg/m2 Swollen legs Varicose veins or History of unexplained or recurrent spontaneous Oral contraceptives or hormone replacement Sepsis (< 1 month) Serious lung disease, including pneumonia (< 1 month) Abnormal pulmonary function Acute myocardial infarction Congestive heart failure (< 1 month) History of inflammatory bowel disease Medical patient at bed rest Age 61-74 Arthroscopic surgery Major open surgery (> 45 min) Laparoscopic surgery (> 45 min) Malignancy Confined to bed (> 72 hours) Immobilizing plaster cast Central venous access Age >= 75 History of VTE Family history of VTE Factor V Leiden Prothrombin [id number] Lupus anticoagulant Anticardiolipin antibodies Elevated serum homocysteine Heparin-induced thrombocytopenia Other congenital or acquired thrombophilia Stroke (< 1 month) Elective arthroplasty Hip, pelvis, or leg fracture Acute spinal cord injury (< 1 month) Prophylaxis Regimen: Total Risk Factor Score Risk Level Prophylaxis Regimen 0-1 Low Early ambulation 2 Moderate Order ONE of the following: *Sequential Compression Device (SCD) *Heparin 5000 units SQ BID 3-4 Higher Order ONE of the following medications: *Heparin 5000 units SQ TID *Enoxaparin/Lovenox 40 mg SQ daily (WT < 150 kg, CrCl > 30 mL/min) *Enoxaparin/Lovenox 30 mg SQ daily (WT < 150 kg, CrCl > 10-29 mL/min) *Enoxaparin/Lovenox 30 mg SQ BID (WT < 150 kg, CrCl > 30 mL/min) AND/OR *Sequential Compression Device (SCD) 5 or more Highest Order ONE of the following medications: *Heparin 5000 units SQ TID (Preferred with Epidurals) *Enoxaparin/Lovenox 40 mg SQ daily (WT < 150 kg, CrCl > 30 mL/min) *Enoxaparin/Lovenox 30 mg SQ daily (WT < 150 kg, CrCl > 10-29 mL/min) *Enoxaparin/Lovenox 30 mg SQ BID (WT < 150 kg, CrCl > 30 mL/min) AND *Sequential Compression Device (SCD) Assessment and Plan - Plan This is a 77-year-old female with a history of hypertension, hyperlipidemia and irregular heartbeat/tachycardia on calcium channel esperanza. She presents with acute onset of palpitations, dizziness and shortness of breath. EMS reported that her heart rate was over 200. EKG with sinus tachycardia. Telemetry with sinus rhythm at this time. Also records revealed she has history of A. fib and bilateral CVA. Palpitations likely paroxysmal A. fib. TSH and urine drug screen unremarkable. At this time she is completely asymptomatic. Agree with cardiology add Lopressor and start Eliquis in light of high chads score. Patient to undergo echocardiogram in 2 days. Elevated troponin with coronary calcifications on CTA. Denies chest pain. Troponin bump could also be related to tachycardia. Patient at this time does not want any ischemic workup and will undergo Lexiscan in 2 days. Continue aspirin and beta-esperanza. Emphysema. She is an ex-smoker. Monitor albuterol as needed. Recommended flu and pneumonia vaccination Mild transaminitis on Lipitor. Improved on repeat lab work. DVT prophylaxis on Eliquis. Lovenox has been discontinued Discharge Planning: Discharge patient to home Condition on discharge: Improved Regular Diet as tolerated Ad Anushka activity Rx written: Eliquis, aspirin and metoprolol Follow-up with primary care physician and cardiology
[2018-03-29] MEDS ORDERED: Ketoralac 0.5% Opth Drops 5 ML Bottle LEFT EYE SCH (10:00)
[2018-03-29] MEDS ORDERED: Potassium Bicarbonate 25 MEQ Effervescent Tablet PO ONE (10:00)
[2018-03-29] MEDS ORDERED: Phenylephrine 2.5% Opth Drops 2 ML Bottle LEFT EYE SCH (10:00)
[2018-03-29] MEDS ORDERED: GATIFLOXACIN 0.5% LEFT EYE SCH (10:00)
[2018-03-29] MEDS ORDERED: Metoprolol Tartrate 25 MG Tablet PO SCH (10:00)
[2018-03-29] MEDS ORDERED: Tropicamide 1% Opth Drops 15 ML Bottle LEFT EYE SCH (10:00)
[2018-03-29] MEDS ORDERED: OPTH LEFT EYE SCH (10:00)
[2018-03-29 10:37] VITALS: BP 141/78; PULSE 96
[2018-03-29 10:38] VITALS: RESP 19
--- NOTE | 2018-03-29 21:36 | ECG ---
Date Performed: 03/28/2018 Time Performed: 15:22:32 PTAGE: 77 years EKG: SINUS TACHYCARDIA RIGHT BUNDLE BRANCH BLOCK ABNORMAL ECG NO PREVIOUS TRACING DOCTOR: Yolanda Short Interpretating Date/Time 03/29/2018 21:35:21
== END 2018-03-29 10:30 | disposition home or self-care (01) ==
LOC: PHEDA 14:57 → PHED 14:57 → PHICU 21:44
PROVIDERS: ADMIT Internal Medicine; ATTEND Internal Medicine